=== PATIENT | female | born 1985 | race Caucasian/White ===

== ENCOUNTER 2021-06-20 04:45 | Inpatient (IN) | payer OTHER ==
[2021-06-20] MEDS ORDERED: PENICILLIN G POTASSIUM 20,000,000 (20Mm) UNITS VIAL IVPB ONE (05:36)
[2021-06-20] MEDS: DEXTROSE 5%-LACTATED RINGERS 1,000 ML IV SCH ×2 (06:30→09:22)
[2021-06-20 06:43] VITALS: BMI 27.4
[2021-06-20 06:43] LABS: BASO % 0.4 % (0-2.0); EOS % 0.4 % (0-4.5); HEMATOCRIT 32.9 % (32.4-45.2); HEMOGLOBIN 11.7 GM/dL (10.7-15.3); LYMPH % 23.8 % (8-40); MCH 31.7 pg (25.7-33.7); MCHC 35.7 g/dl (32.0-36.0); MEAN CELL VOLUME 88.7 fl (80-96); MEAN PLT VOLUME 8.2 fl (7.5-11.1); MONO % 6.9 % (3.8-10.2); NEUT % 68.5 % (42.8-82.8); PLATELET COUNT 174 10^3/uL (134-434); RBC 3.71 M/mm3 (3.60-5.2); RDW 14.5 % (11.6-15.6); WHITE BLOOD COUNT 6.9 K/mm3 (4.0-10.0)
[2021-06-20 06:46] LABS: INR 0.96 (0.83-1.09); PROTHROMBIN TIME (PATIENT) 11.6 SEC (9.7-13.0)
[2021-06-20 06:49] LABS: ACTIVATED PTT 33.1 SECONDS (25.2-36.5)
[2021-06-20 06:57] LABS: CALCIUM 8.2 mg/dL (8.5-10.1)
[2021-06-20 06:58] LABS: BLOOD UREA NITROGEN 6.4 mg/dL (7-18)
[2021-06-20] MEDS ORDERED: PENICILLIN G POTASSIUM 5,000,000 UNIT in DEXTROSE 5%-WATER - 250 ML IVPB ONE (07:00)
[2021-06-20 07:01] LABS: CREATININE 0.6 mg/dL (0.55-1.3)
[2021-06-20] MEDS ORDERED: DINOPROSTONE 10 MG VAGINAL SUPPOSITORY VG ONE (11:28)
[2021-06-20] MEDS: PENICILLIN G POTASSIUM 2,500,000 UNIT in DEXTROSE 5%-WATER - 100 ML IVPB SCH ×2 (11:30→15:30)
[2021-06-20] MEDS ORDERED: OXYTOCIN 30 UNITS in 0.9% NS 30 UNIT/500 ML INFUS.BAG IVPB ONE (11:59)
[2021-06-20] MEDS ORDERED: OXYTOCIN 30 UNITS in 0.9% NS 30 UNIT/500 ML INFUS.BAG IVPB SCH (12:00)
[2021-06-20] MEDS ORDERED: BUTORPHANOL TARTRATE 2 MG/ML VIAL ONE (15:46)
[2021-06-20] MEDS ORDERED: PROMETHAZINE HCL 25 MG/1 ML VIAL ONE (15:46)
[2021-06-20] MEDS ORDERED: PROMETHAZINE HCL 25 MG/1 ML VIAL IVPB ONE (17:00)
[2021-06-20] MEDS ORDERED: BUTORPHANOL TARTRATE 2 MG/ML VIAL IVPB ONE (17:00)
[2021-06-20] MEDS ORDERED: LIDOCAINE HCL 1% PRESERVATIVE FREE - 30ML VIAL ONE (17:05)
[2021-06-20] MEDS ORDERED: OXYTOCIN 20 UNITS in 0.9% NS 20 UNIT/1,000 ML INFUS.BAG IV ONE ×2 (17:05→17:24)
[2021-06-20] MEDS ORDERED: OXYTOCIN 20 UNITS in 0.9% NS 1000 ML INFUS.BAG IV ONE (20:56)
[2021-06-20] MEDS ORDERED: BENZOCAINE 28 GM HEMORRHOIDAL OINTMENT TP PRN (20:56)
[2021-06-20] MEDS ORDERED: BENZOCAINE 20% 57 GM BOTTLE TP PRN (20:56)
[2021-06-20] MEDS ORDERED: METHYLERGONOVINE MALEATE 0.2 MG/1 ML AMP IM PRN (20:56)
[2021-06-20] MEDS ORDERED: WITCH HAZEL 50% (TUCKS) 40 PAD/JAR PAD TP PRN (20:56)
[2021-06-21] MEDS: ACETAMINOPHEN 325 MG TABLET (FP) PO PRN ×2 (00:03→14:53)
[2021-06-21] MEDS: IBUPROFEN 600 MG TABLET (FP) PO PRN ×2 (00:06→14:53)
[2021-06-21] MEDS: PRENATAL VITAMINS W/ FOLIC ACID TABLET (FP) PO SCH (09:10)
[2021-06-21 14:03] LABS: BASO % 0.6 % (0-2.0); EOS % 0.2 % (0-4.5); HEMOGLOBIN 12.3 GM/dL (10.7-15.3); MCH 30.2 pg (25.7-33.7); MCHC 34.1 g/dl (32.0-36.0); MEAN CELL VOLUME 88.6 fl (80-96); MONO % 5.4 % (3.8-10.2); NEUT % 80.8 % (42.8-82.8); PLATELET COUNT 170 10^3/uL (134-434); RBC 4.07 M/mm3 (3.60-5.2); WHITE BLOOD COUNT 11.5 K/mm3 (4.0-10.0)
[2021-06-21] MEDS ORDERED: SENNOSIDES/DOCUSATE COMBO (SENNA PLUS) TABLET (UD) PO PRN (22:00)
[2021-06-22] MEDS: IBUPROFEN 600 MG TABLET (FP) PO PRN ×2 (01:58→09:54)
[2021-06-22] MEDS: ACETAMINOPHEN 325 MG TABLET (FP) PO PRN ×2 (01:59→09:54)
[2021-06-22] MEDS: PRENATAL VITAMINS W/ FOLIC ACID TABLET (FP) PO SCH (09:54)
[2021-06-22 10:03] VITALS: BP 124/80; PULSE 80; TEMP 98.7
[2021-06-25 09:04] LABS: POC NITRAZINE POS
== END 2021-06-22 12:00 | disposition home or self-care (01) | DRG 560 ==
LOC: JDEL 04:45 → JLDR 05:24 → J3W 20:00
PROVIDERS: ADMIT Obstetrics & Gynecology Maternal & Fetal Medicine; ATTEND Obstetrics & Gynecology Maternal & Fetal Medicine
PROC: 10E0XZZ Delivery of Products of Conception, External Approach (ICD-10-PCS; principal; 2021-06-20)
PROC: 0HQ9XZZ Repair Perineum Skin, External Approach (ICD-10-PCS; 2021-06-20)
DX: O70.0 First degree perineal laceration during delivery (principal); Z3A.38 38 weeks gestation of pregnancy; Z37.0 Single live birth
CPT/HCPCS: 36415; 59409; 80048; 83986-QW; 85025; 85610; 85730; 86780; 86850; 86900; 86901; 88307-TC; C9803; U0003; U0005